=== PATIENT | female | born 1970 ===

== ENCOUNTER 2016-12-21 14:08 | Emergency (ER) | payer OTHER ==
[2016-12-21 14:24] VITALS: BP 147/88; PULSE 68; RESP 18; TEMP 97.8; O2SAT 98
== END 2016-12-21 14:59 | disposition home or self-care (01) ==
LOC: ED 14:08
DX: Z76.0 Encounter for issue of repeat prescription (principal); F32.9 Major depressive disorder, single episode, unspecified
CPT/HCPCS: 99282

== ENCOUNTER 2017-01-24 14:57 | Outpatient (CLI) | payer OTHER ==
[2016-12-21 14:24] VITALS: O2SAT 98
== END 2017-01-24 14:58 | disposition home or self-care (01) ==
LOC: CONVCARE 14:57
PROVIDERS: ATTEND Orthopaedic Surgery
DX: M25.512 Pain in left shoulder (principal)
CPT/HCPCS: 73030